=== PATIENT | female | born 1965 | race Caucasian/White ===

== ENCOUNTER 2021-06-25 06:50 | Observation (INO) | payer BC ==
[2021-06-23 16:10] LABS: BASOPHILS % 0.4 % (0.0-1.0); EOSINOPHILS # (AUTO) 0.1 (0.0-0.4); EOSINOPHILS % 1.6 % (0.0-6.0); HEMATOCRIT 44.8 % (34.2-44.1); HEMOGLOBIN 14.8 g/dL (12.0-16.0); LYMPHOCYTES # (AUTO) 2.3 (1.0-3.2); MEAN CORPUSCULAR HEMOGLOBIN 30.2 pg (28-32); MEAN CORPUSCULAR VOLUME 91.4 fL (81-99); MONOCYTES # (AUTO) 0.6 (0.2-0.8); MONOCYTES % 7.4 % (4.4-11.3); NEUTROPHILS # (AUTO) 5.3 (2.1-6.9); NEUTROPHILS % 63.5 % (38.7-80.0); PLATELET COUNT 320 x10e3/uL (140-360); RED CELL DISTRIBUTION WIDTH 12.5 % (11.7-14.4)
[2021-06-23 16:29] LABS: INR 0.84; PROTHROMBIN TIME 12.3 seconds (11.9-14.5)
[2021-06-23 16:30] LABS: PARTIAL THROMBOPLASTIN TIME 30.1 seconds (23.8-35.5)
[2021-06-23 16:34] LABS: CALCIUM 10.2 mg/dL (8.4-10.2); CREATININE, SERUM 0.74 mg/dL (0.57-1.11)
[~2021-06-25] VITALS: Ht 157.5 cm; Wt 70.3 kg
[~2021-06-25 06:50] MED LIST: PANTOPRAZOLE SO40 MG PO; TYLENOL #3 PO
[2021-06-25] MEDS ORDERED: THROMBIN FOR SOLN 5,000 UNIT VIAL ONE (07:47)
[2021-06-25] MEDS ORDERED: Vancomycin IV 1 GM VIAL ONE ×3 (07:47→08:06)
[2021-06-25] MEDS ORDERED: SODIUM CHLORIDE 0.9% 250ML 250 ML ONE (08:06)
[2021-06-25] MEDS ORDERED: BUPIVACAINE HCL 0.5% INJ 30 ML VIAL INJ ONE (08:21)
[2021-06-25] MEDS ORDERED: LIDOCAINE 2% /EPINEPHRINE 20 ML SDV INJ ONE (10:30)
[2021-06-25] MEDS ORDERED: ONDANSETRON HCL INJ 2MG/ML 2ML 2 MG/ML VIAL IV PRN (11:15)
[2021-06-25] MEDS ORDERED: ZOLPIDEM TARTRATE 5 MG TAB PO PRN (11:15)
[2021-06-25] MEDS ORDERED: ACETAMINOPHEN 325 MG TAB PO PRN (11:15)
[2021-06-25] MEDS ORDERED: MAGNESIUM/ALUMINUM/SIMETHICONE 30 ML UDC PO PRN (11:15)
[2021-06-25] MEDS ORDERED: OXYCODONE/ACETAMINOPHEN 5-325 1 EACH TABLET PO PRN (11:15)
[2021-06-25] MEDS ORDERED: HYDROMORPHONE 2MG/ML 2 MG/ML ML IV PRN (11:15)
[2021-06-25] MEDS ORDERED: HYDROCODON-ACE1 EA12 PO (11:15)
[2021-06-25] MEDS ORDERED: MORPHINE SULFATE 5 MG/ML VIAL IM PRN (11:15)
[2021-06-25] MEDS ORDERED: PROMETHAZINE HCL (IM) 25 MG/ML VIAL IM PRN (11:15)
[2021-06-25] MEDS: LACTATED RINGER'S 1,000 ML IV SCH ×2 (11:15→21:51)
[2021-06-25] MEDS ORDERED: CEPACOL SORE THROAT LOZENGES PO PRN (11:15)
[2021-06-25] MEDS ORDERED: CARISOPRODOL 350 MG TAB PO PRN (11:15)
[2021-06-25] MEDS ORDERED: IBUPROFEN 800 MG/200 ML BAG IV ONE (11:46)
[2021-06-25] MEDS ORDERED: SEVOFLURANE INHAL SOLN 250 ML PEN BTL ONE (11:46)
[2021-06-25] MEDS ORDERED: SUGAMMADEX SODIUM 200 MG/2 ML VIAL IV ONE (11:46)
[2021-06-25] MEDS ORDERED: ACETAMINOPHEN 1000 MG/100 ML IV ONE (11:46)
[2021-06-25] MEDS ORDERED: POVIDONE IODINE 0.05% 0.05 % ML PO ONE (11:46)
[2021-06-25] MEDS ORDERED: ONDANSETRON HCL INJ 2MG/ML 2ML 2 MG/ML VIAL ONE (11:46)
[2021-06-25] MEDS ORDERED: PHENYLEPHRINE HCL 1% 10 MG/ML VIAL ONE (11:46)
[2021-06-25] MEDS ORDERED: LIDOCAINE HCL 2% LOCAL INJ 5 ML SDV VIAL INJ ONE (11:46)
[2021-06-25] MEDS ORDERED: PROPOFOL IV EMULSION 10 MG/ML 20 ML VIAL ONE (11:46)
[2021-06-25] MEDS ORDERED: DEXAMETHASONE SOD PHOS INJ 4 MG/ML SDV ONE (11:46)
[2021-06-25] MEDS ORDERED: ROCURONIUM BROMIDE 10 MG/ML 5ML VIAL IV ONE (11:46)
[2021-06-25] MEDS ORDERED: MIDAZOLAM HCL 2 MG/2 ML VIAL ONE (13:14)
[2021-06-25] MEDS ORDERED: FENTANYL CITRATE/PF 100MCG/2 ML INJ ONE (13:14)
[2021-06-25 13:27] VITALS: BP 118/62
[2021-06-25 14:08] VITALS: BP 118/62
[2021-06-25 15:42] VITALS: BP 125/78
[2021-06-25 20:00] VITALS: BP 122/77
[2021-06-25] MEDS: Vancomycin IV 1 GM in SODIUM CHLORIDE 0.9% 250ML 250 ML IV SCH (21:51)
[2021-06-26] MEDS: LACTATED RINGER'S 1,000 ML IV SCH (03:55)
[2021-06-26 04:00] VITALS: BP 141/88
[2021-06-26] MEDS ORDERED: PANTOPRAZOLE SOD 40 MG TABEC PO SCH (07:30)
[2021-06-26 08:00] VITALS: BP 125/77
[2021-06-26 08:13] VITALS: BP 125/77
[2021-06-26] MEDS: Vancomycin IV 1 GM in SODIUM CHLORIDE 0.9% 250ML 250 ML IV SCH (08:39)
== END 2021-06-26 11:10 | disposition home or self-care (01) ==
LOC: OR 06:50 → PACU V 11:14 → MED/SURG 13:25
PROVIDERS: ADMIT Neurological Surgery; ATTEND Neurological Surgery
DX: M50.122 Cervical disc disorder at C5-C6 level with radiculopathy (principal); Z20.822 Contact with and (suspected) exposure to COVID-19; Z01.818 Encounter for other preprocedural examination; G56.01 Carpal tunnel syndrome, right upper limb; Z88.0 Allergy status to penicillin
CPT/HCPCS: 20931; 22551; 22845; 36415; 64721; 71046; 72040; 76000; 80048; 85025; 85610; 85730; 86850; 86900; 88304; 88311; 93005; C1713 ×4; G0378 ×2; J0131; J1100; J1170; J2001 ×2; J2250; J2370; J2405; J2704; J3010; J3370 ×2; J7050 ×2; J7121; S0164; U0002

== ENCOUNTER → 2021-07-22 | Outpatient (CLI) | payer BC ==
[~2021-07-22] MED LIST changes: +HYDROCODON-ACE1 EA12 PO
== END ==
LOC: RAD 09:04
PROVIDERS: ATTEND Neurological Surgery
DX: M50.20 Other cervical disc displacement, unspecified cervical region (principal); M43.22 Fusion of spine, cervical region
CPT/HCPCS: 72050